=== PATIENT | female | born 1970 ===

== ENCOUNTER 2023-04-19 08:33 | Outpatient (AMB) | payer OTHER, SELFPAY ==
--- NOTE | 2023-04-19 08:42 | MHC.OFFWIV ---
Intake Vital Signs 04/19/23 08:45 Height 5 ft Weight 163 lb 8 oz BMI 31.9 BP 128/80 Blood Pressure Location Lt brachial Position Sitting Pulse 67 Pulse Source Pulse Oximeter Temp 98.4 F Temp Source Oral Pulse Oximetry (%) 98 Oxygen Delivery Method Room Air Intake Visit Reasons: CELLAR HAND/cough, chest tightness ([phone]) Patient Tobacco Use Status: Never used Tobacco Allergies No Known Allergies Allergy (Verified 04/19/23 08:49) Do you need a note to return to daycare/school/sports/work: Yes HPI HPI Comments History of Present Illness Details Melly presents to the walk in today for cough s/p covid 19 infection Patient tested positive for Covid 2 weeks ago, tested negative last week denies current fever, chest pain, palpitations, headaches, dizziness, weakness, peripheral edema. She reports persistent cough, she has history of bronchitis requiring alb MDI in the past. She does not have a current MDI but took a couple puffs from her S.O. with improvement in her cough Cough is non-productive. Patient has no history of nicotine or tobacco use. Never a smoker. [facility] Medical History (Updated 04/19/23 @ 09:39 by Nancy Chacon APRN, RYLEE) Bronchitis Social History Patient Tobacco Use Status: Never used Tobacco Review of Systems Const All systems reviewed & are unremarkable except as noted in HPI and below Physical Exam Vital Signs: Last Vital Signs Temp 98.4 F 04/19/23 08:45 Pulse 67 04/19/23 08:45 BP 128/80 04/19/23 08:45 Pulse Ox 98 04/19/23 08:45 Oxygen Delivery Method Room Air 04/19/23 08:45 BMI result Body Mass Index 31.9 General: awake, alert, oriented. Answers questions appropriately. Fully engaged in examination. Skin: warm, dry, intact HEENT: Normocephalic. Hearing intact. Cardiac: External chest normal in appearance. Respiratory: dry, non-productive cough. LSCTAB. Abdomen: without gross distension. MS: No obvious swelling or deformities. Neurological: Oriented to person, place, time and situation. Thought process intact. Psychiatric: Appropriate mood and affect. Good judgment and insight. Results AMB Rapid Strep AMB Rapid Strep Negative Last Edit by Asmita Gutierrez CMA on 04/19/23 09:10 Results Reviewed Results Reviewed: Laboratory Last Values Strep Scn Rapid Clinic Negative 04/19/23 09:09 Assessment & Plan Assessment & Plan (1) Cough: Code(s): R05.9 - Cough, unspecified (2) COVID-19: Code(s): U07.1 - COVID-19 Plan Melly presented to the walkin for persistant cough s/p covid 19 infection. Rapid strep test negative. Albuterol MDI as needed Benzonatate 100mg po BID as needed Drink plenty of fluids, rest, tylenol/motrin as needed. All questions and concerns were answered, patient agrees with the plan. Follow up with pcp or walkin for any new or worsening symptoms. Orders: Orders AMB Rapid Strep Screen Today Z13.9 - Encounter for screening, unspecified GIANFRANCO Cheatham Medications: New benzonatate 100 mg PO BID PRN 20 caps 0RF cough Nancy Chacon APRN, COUNSELING SERVICES DIRECTOR albuterol sulfate 90 mcg/actuation 2 puffs inhalation QID PRN 6.7 grams 0RF shortness of breath or wheezing Nancy Chacon APRN, COUNSELING SERVICES DIRECTOR Coding Level of Care Code New Pt Level 4 (15843) Diagnoses Cough R05.9 COVID-19 U07.1
[2023-04-19 08:45] VITALS: BP 128/80; PULSE 67; TEMP 36.9; O2SAT 98; BMI 31.9
== END 2023-04-19 10:05 | disposition home or self-care (01) ==
PROVIDERS: Visit Provider Registered Nurse Emergency
DX: R05.9 Cough, unspecified (principal); Z86.16 Personal history of COVID-19
CPT/HCPCS: 87880; 99204

== ENCOUNTER 2023-04-27 08:17 | Outpatient (AMB) | payer OTHER, SELFPAY ==
[2023-04-27 08:19] VITALS: BP 122/66; PULSE 72; TEMP 37.2; O2SAT 98; BMI 31.8
--- NOTE | 2023-04-27 08:19 | AM.OFFWIN_ITS ---
Intake Vital Signs 04/27/23 08:19 Height 5 ft Weight 163 lb BMI 31.8 BP 122/66 Blood Pressure Location Lt brachial Position Sitting Pulse 72 Pulse Source Pulse Oximeter Temp 98.9 F Temp Source Oral Pulse Oximetry (%) 98 Oxygen Delivery Method Room Air Intake Visit Reasons: EP, cough, sore throat ([phone]) Intake Note: pt is here for c.o sore throat, cough since a few days after obi Patient Tobacco Use Status: Never used Tobacco Allergies No Known Allergies Allergy (Verified 04/27/23 08:39) Medication List - Last Reconciled 04/27/23 by Ozzy Melchor MD albuterol sulfate 90 mcg/actuation 2 puffs inhalation QID PRN benzonatate 100 mg PO BID PRN Do you need a note to return to daycare/school/sports/work: Yes HPI EP, cough, sore throat ([phone]) HPI Details Patient presents for a sick visit. Reporting symptoms of sinus congestion, sore throat and difficulty swallowing. Low-grade fever. No family member is sick. No recent travel. Patient reports symptoms of malaise and fatigue. Patient was positive for COVID in the 1st week of April. Continues to have an irritating nonproductive cough since. [facility] Medical History (Updated 04/19/23 @ 09:39 by Nancy Chacon APRN, RYLEE) Bronchitis Social History Patient Tobacco Use Status: Never used Tobacco Physical Exam Vital Signs: Last Vital Signs Temp 98.9 F 04/27/23 08:19 Pulse 72 04/27/23 08:19 BP 122/66 04/27/23 08:19 Pulse Ox 98 04/27/23 08:19 Oxygen Delivery Method Room Air 04/27/23 08:19 BMI result Body Mass Index 31.8 Const General: cooperative and healthy appearing Nutritional Appearance: well nourished Orientation/consciousness: patient oriented x3 Limitations: no limitations HEENT Head: Yes normal to inspection Eyes General: appearance normal, both eyes and all related structures Neck Neck: Yes normal visual inspection Chest Chest palpation & inspection: normal palpation of entire chest wall Resp Effort & Inspection: normal respiratory effort Neuro General: patient oriented x3 Results AMB Rapid Strep AMB Rapid Strep Negative Last Edit by Scar Gauthier CMA on 04/27/23 08 :40 Assessment & Plan Assessment & Plan (1) Cough: Code(s): R05.9 - Cough, unspecified Plan: Patient declined to have a chest x-ray. Antibiotics, prednisone and cough medicine with codeine ordered. Coding Level of Care Code Est Pt Level 3 (25877) Diagnoses Cough R05.9
== END 2023-04-27 08:47 | disposition home or self-care (01) ==
PROVIDERS: Visit Provider Internal Medicine
DX: R05.9 Cough, unspecified (principal); J02.9 Acute pharyngitis, unspecified
CPT/HCPCS: 87880; 99213